=== PATIENT | female | born 1985 | race Caucasian/White ===

== ENCOUNTER 2017-05-15 09:38 | Emergency (ER) | payer OTHER ==
[2017-05-15 09:39] VITALS: BP 139/79; PULSE 73; RESP 18; TEMP 98.7; O2SAT 99
[2017-05-15] MEDS ORDERED: MEDR4PAK PO (10:26)
--- NOTE | 2017-05-15 10:26 | PD ---
HPI Chief Complaint: Headache Time Seen by Provider: 10:23 Travel History International Travel<30 days: No Contact w/Intl Traveler<30days: No Traveled to known affect area: No History of Present Illness HPI 31-year-old female presents to the emergency department for evaluation of scalp pain that has been intermittently occurring over the last year. She states she had a CT 8 months ago through her primary care provider but it was negative. Patient states it feels as though there is water running over her scalp and on to her face. Denies any trauma. No nausea or vomiting. No visual disturbances. No other focal deficits or weakness. Patient has no other symptoms to report. PFSH Past Medical History Medical History: Denies Significant Hx Social History Alcohol Use: No Tobacco Use: No Substance Use: No Allergies-Medications (Allergen,Severity, Reaction): Coded Allergies: No Known Allergies (Unverified , 05/15/17) Reported Meds & Prescriptions Reported Meds & Active Scripts Active Medrol Dosepak (Methylprednisolone) 4 Mg Dspk 4 Mg PO DIRECTED Per Pharmacist direction Review of Systems Except as stated in HPI: all other systems reviewed are Neg Physical Exam Narrative GENERAL: Well-nourished female patient, in no acute distress SKIN: Focused skin assessment warm/dry. HEAD: Atraumatic. Normocephalic. EYES: Pupils equal and round. No scleral icterus. No injection or drainage. ENT: No nasal bleeding or discharge. Mucous membranes pink and moist. Patient has poor dentition. NECK: Trachea midline. No JVD. CARDIOVASCULAR: Regular rate and rhythm. No murmur appreciated. RESPIRATORY: No accessory muscle use. Clear to auscultation. Breath sounds equal bilaterally. GASTROINTESTINAL: Abdomen soft, non-tender, nondistended. Hepatic and splenic margins not palpable. MUSCULOSKELETAL: No obvious deformities. No clubbing. No cyanosis. No edema. NEUROLOGICAL: Awake and alert. No obvious cranial nerve deficits. Motor grossly within normal limits. Normal speech. PSYCHIATRIC: Appropriate mood and affect; insight and judgment normal. Data Data Last Documented VS Vital Signs Date Time Temp Pulse Resp B/P Pulse Ox O2 Delivery O2 Flow Rate FiO2 05/15/17 10:45 05/15/17 10:30 Room Air 05/15/17 09:39 98.7 73 18 99 MDM Medical Decision Making Medical Screen Exam Complete: Yes Emergency Medical Condition: Yes Medical Record Reviewed: Yes Differential Diagnosis Trigeminal neuralgia versus her seizures versus Chaudhry's palsy versus migraine headache versus tension headache versus cluster headache versus other Narrative Course 31-year-old female presents to the emergency department for evaluation. Patient 's symptoms have been ongoing for the last year to year and a half. They're intermittent in her primary care providers aware of them. Patient has no acute changes today. It does sound is that she may have a trigeminal neuralgia. I' ll trial her on short course of oral steroids. She agrees return immediately if any worsening symptoms. Diagnosis Primary Impression: Facial paresthesia Additional Impression: Scalp pain Referrals: Primary Care Physician Patient Instructions: General Instructions, Trigeminal Neuralgia (ED) Additional Instructions: Follow-up with her primary care provider Outpatient imaging may be warranted if symptoms persist Return immediately with any acute worsening of symptoms Med/Other Pt SpecificInfo: Prescription(s) given Scripts Methylprednisolone Dosepak (Medrol Dosepak)4 Mg Dspk4 Mg PO DIRECTED #1 DSPK Ref 0 Per Pharmacist direction Prov:Quynh Davis 05/15/17 Disposition: 01 DISCHARGE HOME Condition: Stable Quynh Davis May 15, 2017 10:26
== END 2017-05-15 10:45 | disposition home or self-care (01) ==
LOC: NEPK 09:38
DX: R20.9 Unspecified disturbances of skin sensation (principal); R51 Headache; Z79.899 Other long term (current) drug therapy
CPT/HCPCS: 99283

== ENCOUNTER 2017-07-16 15:26 | Emergency (ER) | payer OTHER ==
[~2017-07-16] VITALS: Ht 152.4 cm; Wt 70.0 kg
[~2017-07-16 15:26] MED LIST: CLIN1CAP6 PO; ETON1IMP I-DERMAL; GABA300C5 PO; LO LTAB PO
[2017-07-16 15:27] VITALS: BP 167/98; PULSE 84; RESP 24; TEMP 98.2; O2SAT 98
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
== END 2017-07-16 16:03 | disposition left against medical advice (07) ==
LOC: NETRI 15:26
DX: S02.5XXA Fracture of tooth (traumatic), initial encounter for closed fracture (principal); X58.XXXA Exposure to other specified factors, initial encounter
CPT/HCPCS: 99281

== ENCOUNTER 2018-02-03 09:23 | Emergency (ER) | payer OTHER ==
[~2018-02-03] VITALS: Ht 152.4 cm; Wt 81.0 kg
[~2018-02-03 09:23] MED LIST changes: -CLIN1CAP6 PO; -LO LTAB PO
[2018-02-03 09:27] VITALS: BP 144/92; PULSE 99; RESP 16; TEMP 98.4; O2SAT 100
--- NOTE | 2018-02-03 09:38 | PD ---
HPI Chief Complaint: GI Complaint Time Seen by Provider: 09:36 Travel History International Travel<30 days: No Contact w/Intl Traveler<30days: No Traveled to known affect area: No History of Present Illness HPI 32-year-old female arrives complaining of suprapubic abdominal pain for about a day and a half. Onset gradual. The pain is worse with range of motion coughing. No vomiting or nausea. No fever. Patient reports diarrhea which is chronic in nature. No abnormal discharge or bleeding. PFSH Past Medical History Diminished Hearing: No ?: Unknown Social History Alcohol Use: No Tobacco Use: No Substance Use: No Allergies-Medications (Allergen,Severity, Reaction): Coded Allergies: No Known Allergies (Unverified Adverse Reaction, Unknown, 02/03/18) Reported Meds & Prescriptions Reported Meds & Active Scripts Active Reported Gabapentin 600 Mg Tab 600 Mg PO TID Review of Systems Except as stated in HPI: all other systems reviewed are Neg General / Constitutional: No: Fever Eyes: No: Drainage HENT: No: Sore Throat Cardiovascular: No: Palpitations Respiratory: No: Wheezing Gastrointestinal: Positive: Diarrhea Physical Exam Narrative GENERAL: 32-year-old female pleasant well-nourished well-developed no acute distress Vital Signs Date Time Temp Pulse Resp B/P (MAP) Pulse Ox O2 Delivery O2 Flow Rate FiO2 02/03/18 09:27 98.4 99 16 144/92 (109) 100 SKIN: Warm and dry. HEAD: Atraumatic. Normocephalic. EYES: Pupils equal and round. No scleral icterus. No injection or drainage. ENT: No nasal bleeding or discharge. Mucous membranes pink and moist. NECK: Trachea midline. No JVD. CARDIOVASCULAR: Regular rate and rhythm. RESPIRATORY: No accessory muscle use. Clear to auscultation. Breath sounds equal bilaterally. GASTROINTESTINAL: Suprapubic TTP. soft. No McBurney's point TTP. MUSCULOSKELETAL: Extremities without clubbing, cyanosis, or edema. No obvious deformities. NEUROLOGICAL: Awake and alert. No obvious cranial nerve deficits. Motor grossly within normal limits. Five out of 5 muscle strength in the arms and legs. Normal speech. PSYCHIATRIC: Appropriate mood and affect; insight and judgment normal. Data Data Last Documented VS Vital Signs Date Time Temp Pulse Resp B/P (MAP) Pulse Ox O2 Delivery O2 Flow Rate FiO2 02/03/18 09:27 98.4 99 16 144/92 (109) 100 Orders Orders Urinalysis - C+S If Indicated (02/03/18 09:43) Ed Urine Pregnancytest Poc (02/03/18 09:43) Complete Blood Count With Diff (02/03/18 10:42) Comprehensive Metabolic Panel (02/03/18 10:42) Lipase (02/03/18 10:42) Iv Access Insert/Monitor (02/03/18 10:42) Ecg Monitoring (02/03/18 10:42) Oximetry (02/03/18 10:42) Sodium Chloride 0.9% Flush (Ns Flush) (02/03/18 10:45) Al-Mag Hy-Si 40-40-4 Mg/Ml Liq (Mag-Al P (02/03/18 10:45) Lidocaine 2% Viscous (Xylocaine 2% Visco (02/03/18 10:45) Labs Laboratory Tests Test 02/03/18 09:45 02/03/18 11:05 Urine Color YELLOW Urine Turbidity HAZY Urine pH 5.5 Urine Specific [facility] 1.025 Urine Protein NEG mg/dL Urine Glucose (UA) NEG mg/dL Urine Ketones NEG mg/dL Urine Occult Blood NEG Urine Nitrite NEG Urine Bilirubin NEG Urine Urobilinogen LESS THAN 2.0 MG/DL Urine Leukocyte Esterase NEG Urine RBC LESS THAN 1 /hpf Urine WBC LESS THAN 1 /hpf Urine Squamous Epithelial Cells 8 /hpf Urine Bacteria OCC /hpf Microscopic Urinalysis Comment CULT NOT INDICATED White Blood Count 6.8 TH/MM3 Red Blood Count 4.64 MIL/MM3 Hemoglobin 14.4 GM/DL Hematocrit 42.8 % Mean Corpuscular Volume 92.1 FL Mean Corpuscular Hemoglobin 31.0 PG Mean Corpuscular Hemoglobin Concent 33.7 % Red Cell Distribution Width 13.5 % Platelet Count 280 TH/MM3 Mean Platelet Volume 8.2 FL Neutrophils (%) (Auto) 56.5 % Lymphocytes (%) (Auto) 32.0 % Monocytes (%) (Auto) 7.0 % Eosinophils (%) (Auto) 3.7 % Basophils (%) (Auto) 0.8 % Neutrophils # (Auto) 3.9 TH/MM3 Lymphocytes # (Auto) 2.2 TH/MM3 Monocytes # (Auto) 0.5 TH/MM3 Eosinophils # (Auto) 0.3 TH/MM3 Basophils # (Auto) 0.1 TH/MM3 CBC Comment DIFF FINAL Differential Comment Blood Urea Nitrogen 8 MG/DL Creatinine 0.61 MG/DL Random Glucose 105 MG/DL Total Protein 7.9 GM/DL Albumin 3.8 GM/DL Calcium Level 8.9 MG/DL Alkaline Phosphatase 90 U/L Aspartate Amino Transf (AST/SGOT) 74 U/L Alanine Aminotransferase (ALT/SGPT) 97 U/L Total Bilirubin 0.9 MG/DL Sodium Level 138 MEQ/L Potassium Level 4.0 MEQ/L Chloride Level 106 MEQ/L Carbon Dioxide Level 27.0 MEQ/L Anion Gap 5 MEQ/L Estimat Glomerular Filtration Rate 114 ML/MIN Lipase 113 U/L MDM Medical Decision Making Medical Screen Exam Complete: Yes Emergency Medical Condition: Yes Medical Record Reviewed: Yes Differential Diagnosis UTI, IUP, diverticulitis Narrative Course UA: No UTI UPREG: negative Pt ambulatory in ED without difficulty. CBC & BMP Diagram 02/03/18 11:05 Total Protein 7.9, Albumin 3.8, Calcium Level 8.9, Alkaline Phosphatase 90, Aspartate Amino Transf (AST/SGOT) 74 H, Alanine Aminotransferase (ALT/SGPT) 97 H , Total Bilirubin 0.9 Pt has mild transaminitis. No vomiting or fever. No significant tenderness in the right upper quadrant. Negative Valadez sign. The patient is resting comfortably and feels better, is alert and in no distress. The patients results and examination findings were discussed. The repeat examination is unremarkable and benign. The history, exam, diagnostic testing, and current condition do not suggest any significant pathology to warrant further testing, continued ED treatment, admission, or surgical evaluation at this point. The vital signs have been stable. The patient does not have uncontrollable pain, intractable vomiting, or other significant symptoms. The patient's condition is stable and appropriate for discharge. The patient will pursue further outpatient evaluation with a primary care physician or other designated or consulting physician as indicated in the discharge instructions. The patient expressed understanding and was agreeable with this plan. Diagnosis Primary Impression: Transaminitis Referrals: Primary Care Physician Med/Other Pt SpecificInfo: No Change to Meds Disposition: 01 DISCHARGE HOME Condition: Stable Davon Medrano MD Feb 03, 2018 09:38
[2018-02-03] MEDS ORDERED: GABA600T PO (09:44)
[2018-02-03 10:35] LABS: BACTERIA, URINE OCC /hpf; BILIRUBIN, URINE NEG (NEG); BLOOD, URINE NEG (NEG); GLUCOSE,URINE NEG (NEG); KETONE, URINE NEG (NEG); NITRITE,URINE NEG (NEG); PH, URINE 5.5 (5.0-8.5); SQUAMOUS EPITHELIAL CELL URINE 8 /hpf (0-5); URINE COLOR YELLOW (YELLW/STRAW); URINE LEUKOCYTE ESTERASE NEG (NEG)
[2018-02-03] MEDS ORDERED: SODIUM CHLORIDE 0.9% FLUSH 10 ML FLUSH IV FLUSH PRN (10:45)
[2018-02-03] MEDS ORDERED: LIDOCAINE VISCOUS 2% SOLN 15 ML UDC PO ONE (10:45)
[2018-02-03] MEDS ORDERED: ALUMINUM/MAGNESIUM/SIMETH 30 ML CUP PO ONE (10:45)
[2018-02-03 11:56] LABS: AUTOMATED NEUTROPHIL # 3.9 TH/MM3 (1.8-7.7); BASOPHIL # 0.1 TH/MM3 (0-0.2); BASOPHIL % 0.8 % (0.0-2.0); EOSINOPHIL # 0.3 TH/MM3 (0-0.4); EOSINOPHIL % 3.7 % (0.0-4.0); HEMATOCRIT 42.8 % (35.0-46.0); HEMOGLOBIN 14.4 GM/DL (11.6-15.3); LYMPHOCYTE # 2.2 TH/MM3 (1.0-4.8); MEAN CELL VOLUME 92.1 FL (80.0-100.0); MEAN CORPUSCULAR HGB CONC 33.7 % (32.0-36.0); MEAN PLATELET VOLUME 8.2 FL (7.0-11.0); MONOCYTE # 0.5 TH/MM3 (0-0.9); NEUT % 56.5 % (16.0-70.0); PLATELET COUNT 280 TH/MM3 (150-450); RED BLOOD COUNT 4.64 MIL/MM3 (4.00-5.30); RED CELL DISTRIBUTION WIDTH 13.5 % (11.6-17.2); WHITE BLOOD COUNT 6.8 TH/MM3 (4.0-11.0)
[2018-02-03 12:18] LABS: ALBUMIN 3.8 GM/DL (3.4-5.0); AST (GOT) 74 U/L (15-37); BLOOD UREA NITROGEN 8 MG/DL (7-18); CALCIUM 8.9 MG/DL (8.5-10.1); CHLORIDE 106 MEQ/L (98-107); CREATININE 0.61 MG/DL (0.50-1.00); GLOMERULAR FILTRATION RATE 114 ML/MIN (>89); GLUCOSE,RANDOM 105 MG/DL (74-106); SODIUM (NA) 138 MEQ/L (136-145)
[2018-02-03 12:19] LABS: ALT (GPT) 97 U/L (10-53)
[2018-02-03 12:21] LABS: ALKALINE PHOSPHATASE 90 U/L (45-117); TOTAL BILIRUBIN ADULT 0.9 MG/DL (0.2-1.0); TOTAL PROTEIN 7.9 GM/DL (6.4-8.2)
[2018-02-03 12:48] VITALS: BP 141/78; PULSE 65; RESP 16; O2SAT 100
== END 2018-02-03 12:49 | disposition home or self-care (01) ==
LOC: NEPD 09:23
DX: R74.0 Nonspecific elevation of levels of transaminase and lactic acid dehydrogenase [LDH] (principal); R19.7 Diarrhea, unspecified; Z79.899 Other long term (current) drug therapy
CPT/HCPCS: 80053; 81001; 83690; 84703; 85025; 99283